=== PATIENT | male | born 2000 | race Caucasian/White ===

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

== ENCOUNTER 2019-02-08 12:26 | Emergency (ER) | payer BC, OTHER ==
[2019-02-08] MEDS ORDERED: NS 0.9% 1000 ML** 1,000 ML IV ONE (12:40)
--- NOTE | 2019-02-08 12:44 | ED ---
Dizziness - HPI Summary HPI Summary: This pt is a 18 y/o male presenting to [facility] via EMS from Urgent Care c/o dizziness today. Pt reports he woke up at 06:30 today feeling fine. He had arrived at work and was getting out of his car around 08:30 when he suddenly felt dizzy and nauseous. Pt notes he tried to work for a while but felt dizziness, like almost passing out. Denies syncope or LOC. Denies headache. His mother took the pt to Urgent Care and was referred to the ED. Pt currently reports feeling tired and dizzy. PMHx: asthma, OCD, depression, anxiety. Pt has taken all his medications today. He notes he ate well yesterday. Pt notes he has FHx of hypoglycemia and had some sugar water today with mild relief. - History Of Current Complaint Stated Complaint: DIZZY PER EMS Time Seen by Provider: 02/08/19 12:32 Hx Obtained From: Patient Onset/Duration: Suddenly Timing: Hours Severity Currently: Moderate Character: Lightheaded, Dizzy Aggravating Factor(s): Nothing Alleviating Factor(s): Nothing Associated Signs And Symptoms: Positive: Nausea, Other: - NEGATIVE: headache. Negative: Fever, Chills - Allergies/Home Medications Allergies/Adverse Reactions: Allergies Allergy/AdvReac Type Severity Reaction Status Date / Time adhesive tape Allergy Rash Verified 02/08/19 12:44 amoxicillin [From Augmentin] Allergy Rash Verified 02/08/19 12:44 azithromycin Allergy Rash Verified 02/08/19 12:44 clavulanic acid Allergy Rash Verified 02/08/19 12:44 [From Augmentin] Home Medications: Home Medications BuPROPion XL* [Bupropion XL*] 300 mg PO DAILY 02/08/19 [History Confirmed ] LORazepam [Lorazepam] 0.5 mg PO BID PRN 02/08/19 [History Confirmed 02/08/19] PMH/Surg Hx/FS Hx/Imm Hx Respiratory History: Reports: Hx Asthma Psychiatric History: Reports: Hx Anxiety, Hx Depression, Other Psychiatric Issues/Disorders - OCD - Surgical History Surgery Procedure, Year, and Place: ear tubes, tonsillectomy, reconstruction right hand from soccer injury 2017 - Family History Known Family History: Positive: Cardiac Disease, Hypertension, Respiratory Disease - asthma Negative: Other - NO KNOWN AUTOIMMUNE DZ - Social History Alcohol Use: None Substance Use Type: Reports: None Smoking Status (MU): Never Smoked Tobacco Review of Systems Positive: Fatigue. Negative: Fever, Chills Positive: Nausea Neurological: Other - POSITIVE: dizziness Negative: Headache, Syncope All Other Systems Reviewed And Are Negative: Yes Physical Exam - Summary Physical Exam Summary: Appearance: Well appearing, no pain distress Skin: warm, dry, reflects adequate perfusion Head/face: normal Eyes: EOMI, FABIO ENT: normal Neck: supple, non-tender Respiratory: CTA, breath sounds present Cardiovascular: RRR, pulses symmetrical Abdomen: non-tender, soft Musculoskeletal: normal, strength/ROM intact Neuro: normal, sensory motor intact, A&Ox3 Triage Information Reviewed: Yes Vital Signs Reviewed: Yes - [place] Coma Scale Best Eye Response: 4 - Spontaneous Best Motor Response: 6 - Obeys Commands Best Verbal Response: 5 - Oriented Coma Scale Total: 15 Diagnostics - Laboratory Result Diagrams: 02/08/19 12:51 02/08/19 12:51 Lab Statement: Any lab studies that have been ordered have been reviewed, and results considered in the medical decision making process. - Radiology Chest XR Radiology Interpretation Completed By: Radiologist Summary of Radiographic Findings: IMPRESSION: No active cardiopulmonary disease. Dr. Salgado has reviewed this report. - CT Brain CT CT Interpretation Completed By: Radiologist Summary of CT Findings: IMPRESSION: No acute intracranial abnormality. Dr. Salgado has reviewed this report. - EKG 13:15 Cardiac Rate: Bradycardia - at 59 bpm EKG Rhythm: Sinus Bradycardia Summary of EKG Findings: No acute changes. Re-Evaluation - Re-Evaluation First Eval Re-Evaluation Time: 13:59 Comment: Reviewed results with pt. He will be discharged home. Dizzy Course/Dx - Course Assessment/Plan: Pt is a 18 y/o male presenting to [facility] c/o dizziness today. Pt reports he woke up at 06:30 today feeling fine. He had arrived at work and was getting out of his car around 08:30 when he suddenly felt dizzy and nauseous. Lab results are unremarkable. Chest XR is negative. Brain CT is negative for an acute intracranial abnormality. In the ED course the pt was given IV fluids. Discussed results with pt. He will be discharged home will follow up from his PCP in 3 days. Return precautions were given. - Diagnoses Provider Diagnoses: Dizziness Discharge - Sign-Out/Discharge Documenting (check all that apply): Patient Departure - Discharge home Patient Received Moderate/Deep Sedation with Procedure: No - Discharge Plan Condition: Stable Disposition: HOME Patient Education Materials: Dizziness (ED) Referrals: Scott Roche DO [Primary Care Provider] - Additional Instructions: Please follow up with your primary care provider in 3 days. RETURN TO THE ED FOR ANY NEW OR WORSENING SYMPTOMS. - Attestation Statements Document Initiated by Scribe: Yes Documenting Scribe: Karena Abdul Provider For Whom Scribe is Documenting (Include Credential): José Salgado MD Scribe Attestation: Karena Pratt, scribed for José Salgado MD on 02/08/19 at 1403. Status of Scribe Document: Ready
[2019-02-08 13:06] LABS: ABS Eosinophils 0.1 10^3/ul (0-0.6); ABS Lymphocytes 1.8 10^3/ul (1.0-4.8); ABS Monocytes 0.5 10^3/ul (0-0.8); ABS Neutrophils 2.8 10^3/ul (1.5-7.7); Eosinophil % 2.5 %; Hematocrit 42 % (42-52); Hemoglobin 14.7 g/dL (14.0-18.0); Lymphocyte % 34.6 %; Mean Corpuscular HGB Conc 35 g/dL (31-36); Mean Corpuscular Hemoglobin 31 pg (27-31); Mean Corpuscular Volume 89 fL (80-94); Mean Platelet Volume 8.5 fL (7.4-10.4); Nucleated Red Blood Cells % 0.1; Platelet Count 174 10^3/uL (150-450); Red Blood Count 4.73 10^6 /uL (4.18-5.48); Red Cell Distribution Width 14 % (10-15); White Blood Count 5.3 10^3/uL (3.5-10.8)
[2019-02-08 13:13] LABS: Activated Partial Thrombo Time 34.2 seconds (26.0-38.0); INR 1.05 (0.82-1.09)
[2019-02-08 13:23] LABS: Albumin 4.4 g/dL (3.2-5.2); Albumin/Globulin Ratio 1.8 (1-3); BUN/Creatinine Ratio 11.5 (8-20); Calcium 9.5 mg/dL (8.6-10.3); EGFR African American 136.8 (>60); Globulin 2.5 g/dL (2-4); Potassium 3.9 mmol/L (3.5-5.0); Total Bilirubin 0.3 mg/dL (0.2-1.0); Total Protein 6.9 g/dL (6.4-8.9)
[2019-02-08 14:01] LABS: TSH (Thyroid Stimulating Horm) 1.57 mcIU/mL (0.34-5.60)
[2019-02-08 14:22] VITALS: BP 97/54
== END 2019-02-08 14:21 | disposition home or self-care (01) ==
LOC: ED 12:26
DX: R42 Dizziness and giddiness (principal); Z88.1 Allergy status to other antibiotic agents; Z88.0 Allergy status to penicillin; Z79.899 Other long term (current) drug therapy; J45.909 Unspecified asthma, uncomplicated; F41.9 Anxiety disorder, unspecified; F32.9 Major depressive disorder, single episode, unspecified
CPT/HCPCS: 36415; 70450; 71045; 80053; 82550; 84443; 84484; 85025; 85610; 85730; 93005; 96360; 99284